=== PATIENT | male | born 1990 | race Caucasian/White ===

== ENCOUNTER 2017-08-22 15:50 | Emergency (ER) | payer OTHER ==
[2017-08-22] MEDS ORDERED: KETOROLAC 30 MG/1 ML SDV IVP ONE (16:08)
--- NOTE | 2017-08-22 16:11 | EDPHY ---
H & P Time Seen by Provider: 08/22/17 16:00 HPI/ROS: This patient reports gradual onset of testicular pain at 11:00 a.m.. This initially mild. However the pain is increased steadily to its current 9/10 intensity ache associated with swelling the 1st noticed shortly after onset of the pain. Pain worsens with movement. He has associated nausea but no vomiting. He has never had this pain before. He did work out this morning but denies any acute trauma to the testicle. He has no other associated symptoms. He did not take any medication for symptoms prior to arrival in drove himself by private car to our emergency department for further evaluation. ROS: No fevers or chills. No other constitutional symptoms. HEENT: No complaints Cardiovascular: No lightheadedness GI: Nausea but no vomiting. The pain radiates up toward his abdomen: He reports normal bowel movements. : No urethral discharge. No dysuria. No left testicle symptoms. Integumentary: No skin rash Infectious disease: He denies any STD risk factors. Past Medical/Surgical History: Otherwise healthy. No prior surgeries. Smoking Status: Never smoked Physical Exam: General Appearance: Alert, no distress. Eyes: Pupils equal and round no pallor or injection. ENT, Mouth: Mucous membranes moist. Respiratory: No respiratory distress Cardiovascular: Brisk capillary refills maintained throughout Gastrointestinal: Abdomen is soft and nontender, no masses, bowel sounds normal. : Circumcised penis with no skin lesions or urethral discharge. The patient has tender right testicle and swelling just superior to the testicle with associated tenderness that is mild. Cremasteric reflex is maintained. The position of the right testicle appears to be anatomical currently. Neurological: GCS 15 Skin: Warm and dry, no rashes. Musculoskeletal: Neck is supple nontender. Extremities are symmetrical, full range of motion. Psychiatric: Mood and affect normal DIFFERENTIAL DIAGNOSIS: After history and physical exam differential diagnosis was considered for epididymitis, epididymal head cysts, testicular torsion, appendiceal torsion, UTI, STD Constitutional: Initial Vital Signs Temperature (C) 36.6 C 08/22/17 15:58 Heart Rate 63 08/22/17 15:58 Respiratory Rate 16 08/22/17 15:58 Blood Pressure 144/86 H 08/22/17 15:58 O2 Sat (%) 96 08/22/17 15:58 O2 Delivery Mode Room Air Allergies/Adverse Reactions: No Known Allergies Allergy (Verified 08/22/17 15:58) Home Medications: Medication Instructions Recorded Doxycycline Hyclate 100 mg PO BID #20 tablet 08/22/17 Ibuprofen [Motrin (*)] 600 mg PO Q6 PRN #30 tab 08/22/17 MDM/Departure - MDM Diagnostics: Testicular ultrasound revealed a small hydrocele on the right side and inflammatory findings around the epididymis on the right. Imaging: Discussed imaging studies w/ call or contact centre manager Radiologist Medications Given: Discontinued Medications Ceftriaxone Sodium (Rocephin 250mg Vial) 250 mg IM EDNOW ONE PRN Reason: Protocol Stop: 08/22/17 17:51 Last Admin: 08/22/17 18:13 Dose: 250 mg Doxycycline Hyclate (Doxycycline Hyclate) 100 mg PO EDNOW ONE PRN Reason: Protocol Stop: 08/22/17 17:51 Last Admin: 08/22/17 18:13 Dose: 100 mg Ketorolac Tromethamine (Toradol) 30 mg IVP EDNOW ONE Stop: 08/22/17 16:09 Last Admin: 08/22/17 16:26 Dose: 30 mg Ondansetron HCl (Zofran) 4 mg IVP EDNOW ONE Stop: 08/22/17 16:22 Last Admin: 08/22/17 16:29 Dose: 4 mg ED Course/Re-evaluation: Patient is treated with Toradol IV with relief of his pain down to mild discomfort. He is also situated with the tell propping up his achy testicle. He declined an offer of Tylenol in addition for his pain control as he felt improved with Toradol. Review of labs-normal CBC, urinalysis, chlamydia and GC PCR pending Discussion: Patient presents with testicular pain attributable to epididymitis with potential contribution of hydrocele to the pain as well. I counseled regarding this. We ruled out testicular torsion. While he has no overt risk factors for STDs, given his age will cover chlamydia and GC with Rocephin and doxycycline. Patient is given an IV dose of Rocephin and will take doxycycline for 10 days as an outpatient. He is given the follow-up phone number for the on-call urologist-Dr. Benjamin if he has any ongoing symptoms despite the treatment plan. He understands the need to return emergency department should he develop worsening despite the treatment plan - Depart Disposition: Home, Routine, Self-Care Clinical Impression: Epididymitis, Hydrocele of testis Condition: Good Instructions: Doxycycline (By mouth), Epididymitis (ED), Hydrocele (ED) Additional Instructions: Diagnosis: 1. Epididymitis 2. Hydrocele Plan: Ibuprofen-600 mg per 6 hr and Tylenol for pain control as needed Doxycycline antibiotic for 10 days. Your symptoms should improve over the next few days with treatment plan. If you 're not improving, call Dr. Harper-urologist with phone number listed below to arrange follow-up appointment for further workup. Return to the emergency department for any significant worsening despite treatment plan. Prescriptions: Doxycycline Hyclate 100 mg PO BID #20 tablet Ibuprofen [Motrin (*)] 600 mg PO Q6 PRN #30 tab PRN Reason: Pain Referrals: NONE *PRIMARY CARE P,. [Unknown] - As per Instructions April Benjamin MD [Medical Doctor] - As per Instructions
[2017-08-22 16:19] LABS: PLATELET COUNT 272 10^3/uL (150-400)
[2017-08-22] MEDS ORDERED: ONDANSETRON 4 MG/2 ML VIAL IVP ONE (16:21)
[2017-08-22] MEDS ORDERED: cefTRIAXone 250 MG VIAL IM ONE (17:50)
[2017-08-22] MEDS ORDERED: DOXYCYCLINE HYCLATE 100 MG CAP/TAB PO ONE (17:50)
[2017-08-22 17:54] VITALS: BP 110/65
[2017-08-24 12:09] LABS: GC AMPLIFICATION GENPROBE NEGATIVE (NEGATIVE)
== END 2017-08-22 18:35 | disposition home or self-care (01) ==
LOC: CED 15:50
DX: N45.1 Epididymitis (principal); N43.3 Hydrocele, unspecified
CPT/HCPCS: 76870-PO; 80048-PO; 81003-PO; 85025-PO; 96374; J0696; J1885; J2405